=== PATIENT | female | born 1940 | race Caucasian/White ===

== ENCOUNTER → 2024-10-04 11:16 | Outpatient (REF) | payer MEDICARE, BC, SELFPAY | LOC: UCDH 11:16 | PROVIDERS: ATTENDING PHYSICIAN Psychiatry & Neurology Neurology; FAMILY PHYSICIAN Emergency Medicine; REFERRING PHYSICIAN Internal Medicine | DX: S93.402A Sprain of unspecified ligament of left ankle, initial encounter (principal) | CPT/HCPCS: 73610 ==